=== PATIENT | male | born 1955 | race Caucasian/White ===

== ENCOUNTER 2017-05-01 07:04 | Day surgery (SDC) | payer OTHER, SELFPAY ==
[~2017-05-01] VITALS: Ht 170.2 cm; Wt 90.4 kg
[~2017-05-01 07:04] MED LIST: ASPI325 PO; CLON.1; CRUTCH3 USE; HYDACE10B PO; IBUP200; OMEP20ER; RAMI5; VERA240ERB; [UNRECOGNIZED DRUG - REMARK]; [UNRECOGNIZED DRUG - REMARK]
[2017-05-01] MEDS ORDERED: Aspirin EC81 MG (07:45)
[2017-05-01] MEDS ORDERED: GABA100 (07:46)
[2017-05-01] MEDS ORDERED: ZESTORETIC 20-121 EA (07:48)
[2017-05-01] MEDS ORDERED: AMLO10 (07:49)
[2017-05-01] MEDS ORDERED: DOXE75C (07:50)
[2017-05-01] MEDS ORDERED: TAMS.4ER (07:51)
== END 2017-05-01 10:22 | disposition home or self-care (01) ==
LOC: ORSCSDS 07:04
PROVIDERS: Urology
PROC: 0V507ZZ Destruction of Prostate, Via Natural or Artificial Opening (ICD-10-PCS; principal; 2017-05-01 08:30)
DX: N40.1 Benign prostatic hyperplasia with lower urinary tract symptoms (principal); I10 Essential (primary) hypertension; K21.9 Gastro-esophageal reflux disease without esophagitis; Z79.82 Long term (current) use of aspirin; Z79.899 Other long term (current) drug therapy
CPT/HCPCS: J0744; J1100; J2250; J2270; J2405; J3010; J7120

== ENCOUNTER → 2017-05-14 | Outpatient (CLI) | payer OTHER, SELFPAY ==
[~2017-05-14] MED LIST changes: +AMLO10; +Aspirin EC81 MG; +Crutch1 EACH MISC; +DOXE75C; +GABA100; +TAMS.4ER; +ZESTORETIC 20-121 EA
== END | disposition home or self-care (01) ==
LOC: LAB 16:09
DX: N39.0 Urinary tract infection, site not specified (principal)
CPT/HCPCS: 87086

== ENCOUNTER 2017-12-02 17:08 | Emergency (ER) | payer OTHER ==
[~2017-12-02] VITALS: Ht 170.2 cm; Wt 86.2 kg
[~2017-12-02 17:08] MED LIST changes: -Crutch1 EACH MISC
[2017-12-02] MEDS ORDERED: Crutch1 EACH MISC (18:07)
== END 2017-12-02 18:35 | disposition home or self-care (01) ==
LOC: ER 17:08
DX: S82.65XA Nondisplaced fracture of lateral malleolus of left fibula, initial encounter for closed fracture (principal); S92.252A Displaced fracture of navicular [scaphoid] of left foot, initial encounter for closed fracture; I10 Essential (primary) hypertension; K21.9 Gastro-esophageal reflux disease without esophagitis; Z88.5 Allergy status to narcotic agent; Z88.8 Allergy status to other drugs, medicaments and biological substances; Z79.899 Other long term (current) drug therapy; Z79.82 Long term (current) use of aspirin; Z87.891 Personal history of nicotine dependence; W13.8XXA Fall from, out of or through other building or structure, initial encounter
CPT/HCPCS: 29515; 73610; 99283-25

== ENCOUNTER → 2019-02-24 | Outpatient (CLI) | payer OTHER ==
[~2019-02-24] MED LIST changes: +Crutch1 EACH MISC
[2019-02-26 13:51] LABS: Stool Occult Bld Immuno 1 Negative (NEGATIVE)
== END | disposition home or self-care (01) ==
LOC: LAB 13:00 → LAB SHORT 13:00
PROVIDERS: Family Medicine
DX: Z12.11 Encounter for screening for malignant neoplasm of colon (principal)
CPT/HCPCS: G0328

== ENCOUNTER → 2021-12-14 | Outpatient (CLI) | payer OTHER | END | disposition home or self-care (01) | LOC: LAB 17:27 → LAB SHORT 17:27 | DX: S80.861A Insect bite (nonvenomous), right lower leg, initial encounter (principal); L08.9 Local infection of the skin and subcutaneous tissue, unspecified; W57.XXXA Bitten or stung by nonvenomous insect and other nonvenomous arthropods, initial encounter | CPT/HCPCS: 87070; 87147; 87205 ==

== ENCOUNTER → 2022-05-20 | Outpatient (CLI) | payer OTHER ==
[2022-05-21 14:23] LABS: Stool Occult Bld Immuno 1 Negative (NEGATIVE)
== END | disposition home or self-care (01) ==
LOC: LAB SHORT 12:00 → LAB 12:00
PROVIDERS: Family Medicine
DX: Z12.11 Encounter for screening for malignant neoplasm of colon (principal)
CPT/HCPCS: G0328

== ENCOUNTER 2024-01-05 14:09 | Emergency (ER) | payer OTHER ==
[~2024-01-05] VITALS: Ht 170.2 cm; Wt 95.2 kg
[~2024-01-05 14:09] MED LIST changes: +ALLO100 PO; +AMLO5 PO; +Acetaminophen650 M1 PO; +CELE200 PO; +CYCL10 PO; +CYMBALTA60 M1 PO; -GABA100; +GABA100 PO; +GLIP2.5ER PO; +HYDCHL25 PO; +HYDRA25 PO; +JARDIANCE10 MG PO; +LISI20 PO; +PREG150 PO; +TAMS.4ER PO; +TRELEGY ELLIPT1 EAC1 INH
[2024-01-05 16:37] LABS: BASOPHILS ABSOLUTE AUTO 0.05 K/mm3 (0.00-0.23); BASOPHILS PERCENT AUTO 0 % (0-2); EOSINOPHILS ABSOLUTE AUTO 0.19 K/mm3 (0.00-0.68); EOSINOPHILS PERCENT AUTO 1 % (0-6); Hematocrit 48.7 % (37.0-53.0); Hemoglobin 16.4 g/dL (13.5-17.5); IMMATURE GRAN ABSOLUTE AUTO 0.09 K/mm3 (0.00-0.10); IMMATURE GRAN PERCENT AUTO 1 % (0-1); LYMPHOCYTES ABSOLUTE AUTO 1.53 K/mm3 (0.84-5.20); LYMPHOCYTES PERCENT AUTO 11 % (21-46); MONOCYTES PERCENT AUTO 10 % (4-13); Mean Corpuscular HGB Conc 33.7 g/dL (31.5-36.5); Mean Corpuscular Volume 80 fL (80-100); Mean Platelet Volume 9.7 fL (9.1-12.4); NEUTROPHILS ABSOLUTE AUTO 10.82 K/mm3 (1.96-9.15); NEUTROPHILS PERCENT AUTO 77 % (41-73); Platelet Count 324 K/mm3 (150-400); RDW Standard Deviation 40.7 fL (35.1-46.3); Red Blood Cell Count 6.08 M/mm3 (4.30-5.90); White Blood Cell Count 14.08 K/mm3 (4.00-11.30)
[2024-01-05 16:54] LABS: Albumin, Blood 3.8 g/dL (3.4-5.0); Albumin/Globulin Ratio 0.8 (0.8-1.8); Bilirubin, Total 0.9 mg/dL (0.1-1.0); Bun/Creatinine Ratio 18.9 (12.0-20.0); Calcium, Blood 10.1 mg/dL (8.5-10.1); Creatinine, Blood 3.91 mg/dL (0.60-1.20); Globulin, Blood 4.9 g/dL (2.2-4.0); Potassium, Blood 3.2 mmol/L (3.5-5.5); Total Protein, Blood 8.7 g/dL (6.4-8.2)
[2024-01-05 17:36] LABS: Source, Urine Clean Catch
[2024-01-05 17:45] LABS: Appearance, Urine Clear (Clear); Bilirubin, Urine Neg (Neg); Blood, Urine 1+ (Neg); Color, Urine Yellow (P-Yellow); Glucose Qualitative, Urine 3+ (Neg); Ketones, Urine Neg (Neg); Leukocyte Esterase, Urine Neg (Neg); Nitrite, Urine Neg (Neg); Protein, Urine 3+ (Neg); Specific Gravity, Urine 1.015 (1.003-1.022); Urobilinogen, Urine NORM (Normal)
[2024-01-05 18:09] LABS: Bacteria Few /hpf; Squamous Epithelial Cells Few /hpf (Few)
[2024-01-05] MEDS ORDERED: Dexamethasone Sod Phos 10 MG/ML 1ML VIAL PO ONE (21:00)
[2024-01-05 21:04] LABS: Source, Urine Clean Catch
[2024-01-05 21:08] LABS: Appearance, Urine Clear (Clear); Bilirubin, Urine Neg (Neg); Blood, Urine Neg (Neg); Color, Urine Yellow (P-Yellow); Glucose Qualitative, Urine 3+ (Neg); Ketones, Urine Neg (Neg); Leukocyte Esterase, Urine Neg (Neg); Nitrite, Urine Neg (Neg); Protein, Urine 3+ (Neg); Specific Gravity, Urine 1.015 (1.003-1.022); Urobilinogen, Urine NORM (Normal)
[2024-01-05 21:35] LABS: Bacteria Not Seen /hpf; Red Blood Cells, Urine Not Seen /hpf (0-2); Squamous Epithelial Cells Rare /hpf (Few); White Blood Cells, Urine 0-2 /hpf (0-5)
[2024-01-05 21:41] VITALS: BP 133/89
== END 2024-01-05 21:53 | disposition home or self-care (01) ==
LOC: ER 14:09
PROVIDERS: Emergency Medicine
DX: R53.1 Weakness (principal); M79.672 Pain in left foot; M79.671 Pain in right foot; M25.562 Pain in left knee; M25.521 Pain in right elbow; I12.9 Hypertensive chronic kidney disease with stage 1 through stage 4 chronic kidney disease, or unspecified chronic kidney disease; E11.22 Type 2 diabetes mellitus with diabetic chronic kidney disease; N18.9 Chronic kidney disease, unspecified; M10.9 Gout, unspecified; Z87.891 Personal history of nicotine dependence; Z79.84 Long term (current) use of oral hypoglycemic drugs; Z79.82 Long term (current) use of aspirin; Z79.899 Other long term (current) drug therapy
CPT/HCPCS: 70450; 71046; 80053; 81001; 85025; 93005; 93010; 99285-25; J1100

== ENCOUNTER 2024-01-08 21:33 | Emergency (ER) | payer OTHER ==
[~2024-01-08] VITALS: Ht 172.7 cm; Wt 72.6 kg
[2024-01-08 22:25] LABS: BASOPHILS ABSOLUTE AUTO 0.02 K/mm3 (0.00-0.23); BASOPHILS PERCENT AUTO 0 % (0-2); EOSINOPHILS ABSOLUTE AUTO 0.01 K/mm3 (0.00-0.68); EOSINOPHILS PERCENT AUTO 0 % (0-6); Hematocrit 38.3 % (37.0-53.0); Hemoglobin 13.2 g/dL (13.5-17.5); IMMATURE GRAN PERCENT AUTO 2 % (0-1); LYMPHOCYTES ABSOLUTE AUTO 1.09 K/mm3 (0.84-5.20); LYMPHOCYTES PERCENT AUTO 9 % (21-46); MONOCYTES ABSOLUTE AUTO 1.04 K/mm3 (0.16-1.47); MONOCYTES PERCENT AUTO 8 % (4-13); Mean Corpuscular HGB Conc 34.5 g/dL (31.5-36.5); Mean Corpuscular Volume 79 fL (80-100); Mean Platelet Volume 9.9 fL (9.1-12.4); NEUTROPHILS PERCENT AUTO 81 % (41-73); Platelet Count 335 K/mm3 (150-400); RDW Coefficient Variation 13.3 % (11.7-14.2); RDW Standard Deviation 38.1 fL (35.1-46.3); Red Blood Cell Count 4.88 M/mm3 (4.30-5.90); White Blood Cell Count 12.66 K/mm3 (4.00-11.30)
[2024-01-08 23:55] LABS: Albumin, Blood 3.5 g/dL (3.4-5.0); Bilirubin, Total 0.4 mg/dL (0.1-1.0); Bun/Creatinine Ratio 26.4 (12.0-20.0); Calcium, Blood 8.2 mg/dL (8.5-10.1); Creatinine, Blood 3.9 mg/dL (0.60-1.20); Globulin, Blood 3.6 g/dL (2.2-4.0); Potassium, Blood 2.4 mmol/L (3.5-5.5); Total Protein, Blood 7.1 g/dL (6.4-8.2)
[2024-01-09 01:02] LABS: Source, Urine Clean Catch
[2024-01-09] MEDS ORDERED: PROAIR DIGIHAL90 MCG INH (01:05)
[2024-01-09] MEDS ORDERED: METPRE4DP PO (01:05)
[2024-01-09 01:52] LABS: Appearance, Urine Clear (Clear); Bilirubin, Urine Neg (Neg); Blood, Urine 1+ (Neg); Glucose Qualitative, Urine 3+ (Neg); Ketones, Urine Neg (Neg); Leukocyte Esterase, Urine Neg (Neg); Nitrite, Urine Neg (Neg); Protein, Urine 3+ (Neg); Urobilinogen, Urine NORM (Normal)
[2024-01-09] MEDS ORDERED: Potassium Chloride 20 MEQ/15 ML UDC PO ONE (02:00)
[2024-01-09 02:02] LABS: Color, Urine Pale Yellow (P-Yellow)
[2024-01-09 02:03] LABS: Bacteria Few /hpf; Red Blood Cells, Urine 0-2 /hpf (0-2); Squamous Epithelial Cells Few /hpf (Few); White Blood Cells, Urine 0-2 /hpf (0-5)
[2024-01-09 03:53] LABS: Magnesium, Blood 2.5 mg/dL (1.6-2.4); Phosphorus, Blood 5.1 mg/dL (2.5-4.9)
[2024-01-09 04:00] VITALS: BP 135/77
== END 2024-01-09 04:20 | disposition home or self-care (01) ==
LOC: ER 21:33
PROVIDERS: Emergency Medicine; Physician Assistant
DX: E87.6 Hypokalemia (principal); R80.9 Proteinuria, unspecified; D72.829 Elevated white blood cell count, unspecified; Z88.5 Allergy status to narcotic agent; Z88.8 Allergy status to other drugs, medicaments and biological substances; Z79.899 Other long term (current) drug therapy; Z79.82 Long term (current) use of aspirin; I10 Essential (primary) hypertension; K21.9 Gastro-esophageal reflux disease without esophagitis; M10.9 Gout, unspecified; G47.30 Sleep apnea, unspecified; Z87.891 Personal history of nicotine dependence
CPT/HCPCS: 36415; 80053; 81001; 83735; 84100; 85025; 93005; 93010; 99283-25; A9270

== ENCOUNTER → 2024-02-25 | Outpatient (CLI) | payer OTHER ==
[~2024-02-25] MED LIST changes: +METPRE4DP PO; +PROAIR DIGIHAL90 MCG INH
[2024-02-25 17:24] LABS: BASOPHILS ABSOLUTE AUTO 0.09 K/mm3 (0.00-0.23); BASOPHILS PERCENT AUTO 1 % (0-2); EOSINOPHILS PERCENT AUTO 9 % (0-6); Hematocrit 39.5 % (37.0-53.0); Hemoglobin 13.1 g/dL (13.5-17.5); IMMATURE GRAN ABSOLUTE AUTO 0.06 K/mm3 (0.00-0.10); IMMATURE GRAN PERCENT AUTO 1 % (0-1); LYMPHOCYTES ABSOLUTE AUTO 1.58 K/mm3 (0.84-5.20); LYMPHOCYTES PERCENT AUTO 24 % (21-46); MONOCYTES ABSOLUTE AUTO 0.58 K/mm3 (0.16-1.47); MONOCYTES PERCENT AUTO 9 % (4-13); Mean Corpuscular HGB 26.5 pg (26.0-34.0); Mean Corpuscular HGB Conc 33.2 g/dL (31.5-36.5); Mean Corpuscular Volume 80 fL (80-100); Mean Platelet Volume 10.4 fL (9.1-12.4); NEUTROPHILS ABSOLUTE AUTO 3.69 K/mm3 (1.96-9.15); NEUTROPHILS PERCENT AUTO 56 % (41-73); Platelet Count 217 K/mm3 (150-400); RDW Coefficient Variation 15.3 % (11.7-14.2); RDW Standard Deviation 44.1 fL (35.1-46.3); Red Blood Cell Count 4.94 M/mm3 (4.30-5.90)
== END ==
LOC: LAB 15:54 → LAB SHORT 15:54
PROVIDERS: Internal Medicine Hematology & Oncology
DX: D47.2 Monoclonal gammopathy (principal)
CPT/HCPCS: 85025

== ENCOUNTER → 2024-04-29 | Outpatient (CLI) | payer OTHER ==
[2024-04-29 18:26] LABS: BASOPHILS ABSOLUTE AUTO 0.06 K/mm3 (0.00-0.23); BASOPHILS PERCENT AUTO 1 % (0-2); EOSINOPHILS ABSOLUTE AUTO 0.48 K/mm3 (0.00-0.68); EOSINOPHILS PERCENT AUTO 7 % (0-6); Hematocrit 38.4 % (37.0-53.0); IMMATURE GRAN PERCENT AUTO 2 % (0-1); LYMPHOCYTES ABSOLUTE AUTO 1.08 K/mm3 (0.84-5.20); LYMPHOCYTES PERCENT AUTO 16 % (21-46); MONOCYTES ABSOLUTE AUTO 0.53 K/mm3 (0.16-1.47); MONOCYTES PERCENT AUTO 8 % (4-13); Mean Corpuscular HGB 27.2 pg (26.0-34.0); Mean Corpuscular HGB Conc 33.9 g/dL (31.5-36.5); Mean Corpuscular Volume 80 fL (80-100); Mean Platelet Volume 9.8 fL (9.1-12.4); NEUTROPHILS PERCENT AUTO 67 % (41-73); Platelet Count 225 K/mm3 (150-400); RDW Coefficient Variation 16.9 % (11.7-14.2); Red Blood Cell Count 4.78 M/mm3 (4.30-5.90); White Blood Cell Count 6.85 K/mm3 (4.00-11.30)
== END ==
LOC: LAB 17:15 → LAB SHORT 17:15
PROVIDERS: Internal Medicine Hematology & Oncology
DX: E61.1 Iron deficiency (principal)
CPT/HCPCS: 85025

== ENCOUNTER → 2024-07-01 | Outpatient (CLI) | payer OTHER ==
[2024-07-01 19:09] LABS: BASOPHILS ABSOLUTE AUTO 0.08 K/mm3 (0.00-0.23); BASOPHILS PERCENT AUTO 1 % (0-2); EOSINOPHILS PERCENT AUTO 6 % (0-6); Hematocrit 42.2 % (37.0-53.0); IMMATURE GRAN PERCENT AUTO 1 % (0-1); LYMPHOCYTES ABSOLUTE AUTO 1.28 K/mm3 (0.84-5.20); LYMPHOCYTES PERCENT AUTO 14 % (21-46); MONOCYTES PERCENT AUTO 10 % (4-13); Mean Corpuscular HGB 27.1 pg (26.0-34.0); Mean Corpuscular HGB Conc 33.2 g/dL (31.5-36.5); Mean Corpuscular Volume 82 fL (80-100); Mean Platelet Volume 10.1 fL (9.1-12.4); NEUTROPHILS ABSOLUTE AUTO 6.05 K/mm3 (1.96-9.15); NEUTROPHILS PERCENT AUTO 68 % (41-73); Platelet Count 261 K/mm3 (150-400); RDW Coefficient Variation 15.1 % (11.7-14.2); Red Blood Cell Count 5.16 M/mm3 (4.30-5.90); White Blood Cell Count 8.91 K/mm3 (4.00-11.30)
== END ==
LOC: LAB 17:54 → LAB SHORT 17:54
PROVIDERS: Internal Medicine Hematology & Oncology
DX: E61.1 Iron deficiency (principal)
CPT/HCPCS: 85025

== ENCOUNTER 2024-10-14 15:42 | Inpatient (IN) | payer OTHER ==
[~2024-10-14] VITALS: Ht 170.2 cm; Wt 91.1 kg
[~2024-10-14 15:42] MED LIST changes: +ACET325 PO; -Acetaminophen650 M1 PO; -Aspirin EC81 MG; +Aspirin EC81 MG PO; -DOXE75C; +DOXE75C PO; -GLIP2.5ER PO; +GLIPIZIDE2.5 MG PO; -OMEP20ER; +OMEP20ER PO
[2024-10-14 17:12] LABS: Influenza A, PCR NEGATIVE (NEGATIVE); Influenza B, PCR NEGATIVE (NEGATIVE); Resp Syncytial Virus, PCR NEGATIVE (NEGATIVE); SARS-Cov-2 (COVID-19) PCR, MMC NEGATIVE (NEGATIVE)
[2024-10-14] MEDS ORDERED: CefTRIAXone Sodium 1,000 MG in NS 50 ML IV ONE (21:55)
[2024-10-14 22:02] LABS: BASOPHILS ABSOLUTE AUTO 0.06 K/mm3 (0.00-0.23); BASOPHILS PERCENT AUTO 1 % (0-2); EOSINOPHILS ABSOLUTE AUTO 0.38 K/mm3 (0.00-0.68); EOSINOPHILS PERCENT AUTO 3 % (0-6); Hematocrit 40.9 % (37.0-53.0); Hemoglobin 13.5 g/dL (13.5-17.5); IMMATURE GRAN ABSOLUTE AUTO 0.10 K/mm3 (0.00-0.10); IMMATURE GRAN PERCENT AUTO 1 % (0-1); LYMPHOCYTES ABSOLUTE AUTO 1.08 K/mm3 (0.84-5.20); LYMPHOCYTES PERCENT AUTO 10 % (21-46); MONOCYTES ABSOLUTE AUTO 1.36 K/mm3 (0.16-1.47); MONOCYTES PERCENT AUTO 12 % (4-13); Mean Corpuscular HGB Conc 33.0 g/dL (31.5-36.5); Mean Corpuscular Volume 83 fL (80-100); NEUTROPHILS ABSOLUTE AUTO 8.33 K/mm3 (1.96-9.15); NEUTROPHILS PERCENT AUTO 74 % (41-73); NRBC ABSOLUTE 0.00 K/mm3 (0.00-0.02); NRBC Auto 0.0 /100 WBC (0.0-0.2); Platelet Count 225 K/mm3 (150-400); RDW Coefficient Variation 14.8 % (11.7-14.2); RDW Standard Deviation 44.7 fL (35.1-46.3)
[2024-10-14 22:18] LABS: Alanine Aminotransfer (ALT/SGP 29.0 U/L (12-78); Albumin, Blood 3.4 g/dL (3.4-5.0); Albumin/Globulin Ratio 0.8 (0.8-1.8); Anion Gap 11.0 mmol/L (3-11); Aspartate Aminotrans (AST/SGOT 18.0 U/L (12-37); Bilirubin, Total 0.5 mg/dL (0.1-1.0); Blood Urea Nitrogen 69.0 mg/dL (8-24); CO2, Blood 31.0 mmol/L (21-32); Calcium, Blood 9.4 mg/dL (8.5-10.1); Chloride, Blood 96.0 mmol/L (98-108); Creatinine, Blood 6.82 mg/dL (0.60-1.20); Globulin, Blood 4.1 g/dL (2.2-4.0); Glucose, Blood 101.0 mg/dL (70-99); Potassium, Blood 3.6 mmol/L (3.5-5.5); Sodium, Blood 134.0 mmol/L (136-145); Total Protein, Blood 7.5 g/dL (6.4-8.2)
[2024-10-14 22:41] LABS: pH Blood Venous 7.38 (7.34-7.37)
[2024-10-15] MEDS ORDERED: KETO15TC TOP (00:51)
[2024-10-15] MEDS ORDERED: VITAMIN B121000 MCG PO (00:52)
[2024-10-15] MEDS ORDERED: VITAMIN D325 MC3 PO (00:52)
[2024-10-15] MEDS ORDERED: HYDCHL25 PO (00:52)
[2024-10-15 01:04] LABS: Source, Urine Clean Catch
[2024-10-15 01:58] LABS: Bilirubin, Urine Neg (Neg); Glucose Qualitative, Urine 3+ (Neg); Ketones, Urine Neg (Neg); Leukocyte Esterase, Urine Neg (Neg); Protein, Urine 3+ (Neg); Specific Gravity, Urine 1.015 (1.003-1.022); Urobilinogen, Urine NORM (Normal)
[2024-10-15 02:10] LABS: Color, Urine Pale Yellow (P-Yellow)
[2024-10-15 02:11] LABS: Red Blood Cells, Urine 0-2 /hpf (0-2); White Blood Cells, Urine 0-2 /hpf (0-5)
[2024-10-15 02:20] VITALS: BP 136/73
[2024-10-15] MEDS ORDERED: Guaifenesin/Dextromethorphan Syrup 5 ML UDC PO PRN (03:10)
[2024-10-15] MEDS ORDERED: Dextran/Hypromellose/Glycerin 15 DROP/ML BTL BOTHEYES PRN (03:10)
[2024-10-15] MEDS ORDERED: Ipratropium Bromide INH 0.02% 0.5 mg/2.5ML Vial INH SCH (03:30)
[2024-10-15] MEDS ORDERED: Albuterol 2.5 MG/3 ML VIAL INH PRN (03:30)
[2024-10-15] MEDS ORDERED: Formoterol/Mometasone MDI 5/100 mcg 13 GM INH SCH (03:30)
[2024-10-15 03:47] VITALS: BP 116/69
--- NOTE | 2024-10-15 04:25 | NUR ---
ADMISSION/SHIFT SUMMARY PATIENT ARRIVED TO THE FLOOR VIA GURNY, STAND PIVOT TRANSFER TO THE BED WITH SBA, GENERALIZED WEAKNESS. A/OX4. VITAL SIGNS OBTAINED. INITIAL ADMISSION ASSESSMENT COMPLETE BY TOM RIVAS. PATIENT RESTED WELL THROUGH THE NIGHT. VOIDING WELL. VITAL SIGNS REMAINED STABLE, NO ACUTE CHANGES. SNACK PROVIDED. PT USING CALL LIGHT APPROPRIATELY. CALL LIGHT IN REACH, BED IN LOWEST POSITION. WILL REPORT TO ONCOMING RN.
[2024-10-15 05:04] LABS: BASOPHILS ABSOLUTE AUTO 0.07 K/mm3 (0.00-0.23); BASOPHILS PERCENT AUTO 1 % (0-2); EOSINOPHILS ABSOLUTE AUTO 0.44 K/mm3 (0.00-0.68); EOSINOPHILS PERCENT AUTO 4 % (0-6); Hematocrit 39.4 % (37.0-53.0); Hemoglobin 13.1 g/dL (13.5-17.5); IMMATURE GRAN ABSOLUTE AUTO 0.13 K/mm3 (0.00-0.10); IMMATURE GRAN PERCENT AUTO 1 % (0-1); LYMPHOCYTES ABSOLUTE AUTO 1.40 K/mm3 (0.84-5.20); LYMPHOCYTES PERCENT AUTO 13 % (21-46); MONOCYTES ABSOLUTE AUTO 1.17 K/mm3 (0.16-1.47); MONOCYTES PERCENT AUTO 11 % (4-13); Mean Corpuscular HGB Conc 33.2 g/dL (31.5-36.5); Mean Corpuscular Volume 83 fL (80-100); NEUTROPHILS ABSOLUTE AUTO 7.86 K/mm3 (1.96-9.15); NEUTROPHILS PERCENT AUTO 71 % (41-73); NRBC ABSOLUTE 0.00 K/mm3 (0.00-0.02); NRBC Auto 0.0 /100 WBC (0.0-0.2); Platelet Count 191 K/mm3 (150-400); RDW Coefficient Variation 14.6 % (11.7-14.2); RDW Standard Deviation 44.2 fL (35.1-46.3)
[2024-10-15 06:16] LABS: Alanine Aminotransfer (ALT/SGP 33.0 U/L (12-78); Albumin, Blood 3.1 g/dL (3.4-5.0); Albumin/Globulin Ratio 0.7 (0.8-1.8); Anion Gap 11.0 mmol/L (3-11); Aspartate Aminotrans (AST/SGOT 19.0 U/L (12-37); Bilirubin, Total 0.4 mg/dL (0.1-1.0); Blood Urea Nitrogen 73.0 mg/dL (8-24); CO2, Blood 28.0 mmol/L (21-32); Calcium, Blood 8.8 mg/dL (8.5-10.1); Chloride, Blood 98.0 mmol/L (98-108); Creatinine, Blood 6.56 mg/dL (0.60-1.20); Globulin, Blood 4.2 g/dL (2.2-4.0); Glucose, Blood 148.0 mg/dL (70-99); Magnesium, Blood 2.2 mg/dL (1.6-2.4); Phosphorus, Blood 5.7 mg/dL (2.5-4.9); Potassium, Blood 2.9 mmol/L (3.5-5.5); Sodium, Blood 134.0 mmol/L (136-145); Total Protein, Blood 7.3 g/dL (6.4-8.2)
[2024-10-15 07:33] VITALS: BP 138/78
[2024-10-15] MEDS ORDERED: Lactobacil 2-S.Thermo-Bifido 1 1 Cap PO SCH (09:00)
[2024-10-15] MEDS ORDERED: Heparin Sodium,Porcine 5,000 UNIT/0.5 ML SDV SC SCH (09:00)
[2024-10-15] MEDS ORDERED: NS 250 ML IV PRN (15:00)
[2024-10-15] MEDS ORDERED: Ketoconazole120 ML TOP (15:21)
[2024-10-15] MEDS ORDERED: BUMETANIDE2 M6 PO (15:25)
[2024-10-15 15:26] VITALS: BP 153/87
[2024-10-15] MEDS ORDERED: CALCITRIOL0.25 MC4 PO (15:30)
--- NOTE | 2024-10-15 15:32 | NUR ---
Pt. is awake in bed and welcomes my visit. Family are at bedside. Facilitate a life review and consider matters of pavan and belief. Pt. is pleasant. Pt. is unsettled about his unkown plan of care. Listen with empathy and interest, and seek to normalize the Pt. experience. Prayed with the Pt. Pt. and family verbalize gratitude for the spiritual care visit.
[2024-10-15] MEDS ORDERED: FOLI1 PO (15:35)
[2024-10-15] MEDS ORDERED: Potassium Chlo20 ME1 PO (15:36)
--- NOTE | 2024-10-15 18:12 | NUR ---
SHIFT SUMMARY: PATIENT PLEASANT AND COOPERATIVE c CARE THROUGHOUT SHIFT. POTASSIUM WAS NOTED TO BE LOW. DR. ALMAGUER NOTIFIED AND PATIENT STARTED ON PO POTASSIUM AND IV. AT 1805, PATIENT HAD 12 BEAT RUN OF BIGJUSTYN. TRIPP NOTIFIED OF THIS FINDING. PLAN FOR POSSIBLE DAILYSIS CATH TOMORROW. WHEEZE AND DIMINISHED THROUGHOUT ALL LUNG LÓPEZ. PLAN OF CARE ONGOING, WILL GIVE REPORT TO ONCOMING RN.
[2024-10-15 20:43] VITALS: BP 161/90
[2024-10-15] MEDS ORDERED: CefTRIAXone Sodium 1,000 MG in NS 100 ML IV SCH (21:00)
[2024-10-16] VITALS (8 sets, daily range): BP systolic 122–162; BP diastolic 71–111
[2024-10-16 05:04] LABS: BASOPHILS ABSOLUTE AUTO 0.07 K/mm3 (0.00-0.23); BASOPHILS PERCENT AUTO 1 % (0-2); EOSINOPHILS ABSOLUTE AUTO 0.60 K/mm3 (0.00-0.68); EOSINOPHILS PERCENT AUTO 7 % (0-6); Hematocrit 43.7 % (37.0-53.0); Hemoglobin 14.1 g/dL (13.5-17.5); IMMATURE GRAN ABSOLUTE AUTO 0.11 K/mm3 (0.00-0.10); IMMATURE GRAN PERCENT AUTO 1 % (0-1); LYMPHOCYTES ABSOLUTE AUTO 1.43 K/mm3 (0.84-5.20); LYMPHOCYTES PERCENT AUTO 16 % (21-46); MONOCYTES ABSOLUTE AUTO 0.99 K/mm3 (0.16-1.47); MONOCYTES PERCENT AUTO 11 % (4-13); Mean Corpuscular HGB Conc 32.3 g/dL (31.5-36.5); Mean Corpuscular Volume 83 fL (80-100); NEUTROPHILS ABSOLUTE AUTO 5.84 K/mm3 (1.96-9.15); NEUTROPHILS PERCENT AUTO 65 % (41-73); NRBC ABSOLUTE 0.00 K/mm3 (0.00-0.02); NRBC Auto 0.0 /100 WBC (0.0-0.2); Platelet Count 194 K/mm3 (150-400); RDW Coefficient Variation 14.7 % (11.7-14.2); RDW Standard Deviation 45.1 fL (35.1-46.3)
[2024-10-16 05:29] LABS: Albumin, Blood 2.8 g/dL (3.4-5.0); Anion Gap 10 mmol/L (3-11); Blood Urea Nitrogen 71 mg/dL (8-24); CO2, Blood 28 mmol/L (21-32); Calcium, Blood 8.8 mg/dL (8.5-10.1); Chloride, Blood 102 mmol/L (98-108); Creatinine, Blood 6.31 mg/dL (0.60-1.20); Glucose, Blood 100 mg/dL (70-99); Phosphorus, Blood 6.9 mg/dL (2.5-4.9); Potassium, Blood 3.6 mmol/L (3.5-5.5); Sodium, Blood 136 mmol/L (136-145)
--- NOTE | 2024-10-16 06:25 | NUR ---
SHIFT SUMMARY CALM & ORIENTED. DOES NOT MOVE TOO MUCH OR GETS OUT OF BED. VITALS GOOD EXCEPT FOR 2 EPISODES OF DBP >100 AT 8P & 12MN THEN BP SUDDENLY RESOLVED TO 140/70 JUST RIGHT BEFORE I AM ABOUT TO GIVE THE 1-TIME DOSE OF APRESOLINE THAT WAS ORDERED. CONTINUED IV ABX, REMINDED OF REPOSITIONING , MAINTAINED COMFORTABLE SLEEP AND RESTED VERY WELL. KEPT NPO FOR PORT PLACEMENT PROCEDURE TODAY.
[2024-10-16] MEDS ORDERED: DULoxetine HCL 60 MG Capsule DR PO SCH (09:00)
[2024-10-16] MEDS ORDERED: Cholecalciferol 1000 Unit Tablet (=25MCG) PO SCH (09:00)
[2024-10-16 14:35] LABS: Anion Gap 13.0 mmol/L (3-11); Blood Urea Nitrogen 73.0 mg/dL (8-24); CO2, Blood 28.0 mmol/L (21-32); Calcium, Blood 9.6 mg/dL (8.5-10.1); Chloride, Blood 99.0 mmol/L (98-108); Creatinine, Blood 6.34 mg/dL (0.60-1.20); Glucose, Blood 118.0 mg/dL (70-99); Potassium, Blood 3.9 mmol/L (3.5-5.5); Sodium, Blood 136.0 mmol/L (136-145)
[2024-10-16 16:50] LABS: Influenza A/2009-H1 Not Detected (NOT DETECT); SARS-Cov-2 (COVID-19), BioFire Not Detected (NOT DETECT)
--- NOTE | 2024-10-16 18:29 | NUR ---
SUMMARY PT WAS NPO TODAY PENDING PROCEDURE FOR DIALYSIS ACCESS. INTERVENTIONAL RADIOLOGY NOT AVAIL. DR. ALMAGUER NOTIFIED AND ASKED ME TO REACH OUT TO CYTOGENETICIST NEPHRO TO REVIEW AND POSSIBLY HAVE GEN SURG CONSULT FOR DIALYSIS ACCESS PLACEMENT. COULD NOT REACH DR. DUMONT [facility], MESSAGE LEFT. DR ALMAGUER NOTIFIED. LABS ORDERED. WILL PREPARE PATIENT TO BE NPO AFTER MIDNIGHT AGAIN PENDING POSSIBLE PROCEDURE. AM LABS ORDERED. PT UP TO BATHROOM 1 ASSIST, WITH GAIT BELT. BOWEL MOVEMENT TODAY 10/16. ABLE TO MAKE NEEDS KNOWN. CALL LIGHT IN REACH. BASELINE MUMBLED SPEECH
[2024-10-16 23:39] LABS: Acinetobacter baumannii DNA Not Detected copy/mL (NOT DETECT); Chlamydia pneumonia Not Detected (NOT DETECT); Enterobacter cloacae DNA Not Detected copy/mL (NOT DETECT); Escherichia coli DNA Not Detected copy/mL (NOT DETECT); Haemophilus influenzae DNA Not Detected copy/mL (NOT DETECT); Klebsiella aerogenes DNA Not Detected copy/mL (NOT DETECT); Klebsiella oxytoca DNA Not Detected copy/mL (NOT DETECT); Klebsiella pneumoniae DNA Not Detected copy/mL (NOT DETECT); Moraxella catarrhalis DNA Detected Bin 10^4 copy/mL (NOT DETECT); Proteus sp DNA Not Detected copy/mL (NOT DETECT); Pseudomonas aeruginosa DNA Not Detected copy/mL (NOT DETECT); Serratia marcescens DNA Not Detected copy/mL (NOT DETECT); Staphylococcus aureus DNA Not Detected copy/mL (NOT DETECT); Streptococcus agalactiae DNA Not Detected copy/mL (NOT DETECT); Streptococcus pneumoniae DNA Not Detected copy/mL (NOT DETECT); Streptococcus pyogenes DNA Not Detected copy/mL (NOT DETECT)
[2024-10-16 23:40] LABS: Human Coronavirus RNA Not Detected (NOT DETECT); Human Metapneumovirus RNA Not Detected (NOT DETECT); Influenza virus A RNA Not Detected (NOT DETECT); Influenza virus B RNA Not Detected (NOT DETECT); Respiratory syncytial Vir RNA Not Detected (NOT DETECT); Rhinovirus+Enterovirus RNA Not Detected (NOT DETECT)
[2024-10-17 01:03] VITALS: BP 143/73
[2024-10-17 05:01] LABS: BASOPHILS ABSOLUTE AUTO 0.05 K/mm3 (0.00-0.23); BASOPHILS PERCENT AUTO 1 % (0-2); EOSINOPHILS ABSOLUTE AUTO 0.64 K/mm3 (0.00-0.68); EOSINOPHILS PERCENT AUTO 6 % (0-6); Hematocrit 38.6 % (37.0-53.0); Hemoglobin 13.0 g/dL (13.5-17.5); IMMATURE GRAN ABSOLUTE AUTO 0.09 K/mm3 (0.00-0.10); IMMATURE GRAN PERCENT AUTO 1 % (0-1); LYMPHOCYTES ABSOLUTE AUTO 1.10 K/mm3 (0.84-5.20); LYMPHOCYTES PERCENT AUTO 11 % (21-46); MONOCYTES ABSOLUTE AUTO 1.05 K/mm3 (0.16-1.47); MONOCYTES PERCENT AUTO 10 % (4-13); Mean Corpuscular HGB Conc 33.7 g/dL (31.5-36.5); Mean Corpuscular Volume 82 fL (80-100); NEUTROPHILS ABSOLUTE AUTO 7.27 K/mm3 (1.96-9.15); NEUTROPHILS PERCENT AUTO 71 % (41-73); NRBC ABSOLUTE 0.00 K/mm3 (0.00-0.02); NRBC Auto 0.0 /100 WBC (0.0-0.2); Platelet Count 221 K/mm3 (150-400); RDW Coefficient Variation 14.6 % (11.7-14.2); RDW Standard Deviation 43.8 fL (35.1-46.3)
[2024-10-17 05:04] VITALS: BP 134/81
[2024-10-17 05:31] LABS: Albumin, Blood 2.8 g/dL (3.4-5.0); Anion Gap 12 mmol/L (3-11); Blood Urea Nitrogen 69 mg/dL (8-24); CO2, Blood 28 mmol/L (21-32); Calcium, Blood 8.9 mg/dL (8.5-10.1); Chloride, Blood 98 mmol/L (98-108); Creatinine, Blood 6.31 mg/dL (0.60-1.20); Glucose, Blood 108 mg/dL (70-99); Phosphorus, Blood 6.7 mg/dL (2.5-4.9); Potassium, Blood 3.5 mmol/L (3.5-5.5); Sodium, Blood 134 mmol/L (136-145)
--- NOTE | 2024-10-17 06:24 | NUR ---
SHIFT SUMMARY SAME LEVEL OF ORIENTATION, VSS AND MOBILITY FROM YESTERDAY. SENT SPUTUM SPECIMEN FOR EXAM TONIGHT. TOLERATES MULTIPLE ABX TX REGIMEN. ABLE TO SLEEP COMFORTABLY AT NIGHT. INSTRUCTED NPO POST-MN FOR POSSIBLE HD ACCESS TODAY. TEMPT SLIGHTLY INCREASING BUT HAS NOT REACH THE FEVER ROLAN YET. NO SIGN OF ANY DISTRESS .
[2024-10-17 07:45] VITALS: BP 135/82
--- NOTE | 2024-10-17 10:53 | NUR ---
CALLED DR. DUMONT PER DR. URIBE REQUEST TO REVIEW CHART. PT HAS BEEN PENDING DIALSIS ACCESS SINCE FRIDAY. DR. SANCHES CELL PROVIDED FOR DR. DUMONT ONCE REVIEWED.
[2024-10-17 11:17] VITALS: BP 134/77
[2024-10-17 15:31] VITALS: BP 128/79
[2024-10-17 19:58] VITALS: BP 138/66
[2024-10-18] VITALS (17 sets, daily range): BP systolic 126–143; BP diastolic 64–85
--- NOTE | 2024-10-18 03:46 | NUR ---
SUMMARY: PT A/OX3 AND IS PLEASANT AND COOPERATIVE W/CARE BUT IS MILDLY FORGETFUL TO PEOPLE/PLACE AT TIMES. HE'S UP W/SBA AND FWW AND HAS BED ALARM ON FOR POSSIBLE FALL RISK. PT'S BEEN NPO SINCE [place] FOR DIALYSIS CATH PLACEMENT BY IR TODAY THEN WILL HAVE PROBABLE DIALYSIS AFTER. 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 NO ACUTE CHANGES, VSS/AFEBRILE. WILL REPORT TO DAY RN.
[2024-10-18 06:40] LABS: Hematocrit 39.0 % (37.0-53.0); Hemoglobin 13.0 g/dL (13.5-17.5)
[2024-10-18 06:54] LABS: Albumin, Blood 2.8 g/dL (3.4-5.0); Anion Gap 10 mmol/L (3-11); Blood Urea Nitrogen 81 mg/dL (8-24); CO2, Blood 29 mmol/L (21-32); Calcium, Blood 9.4 mg/dL (8.5-10.1); Chloride, Blood 100 mmol/L (98-108); Creatinine, Blood 7.00 mg/dL (0.60-1.20); Glucose, Blood 108 mg/dL (70-99); Phosphorus, Blood 6.3 mg/dL (2.5-4.9); Potassium, Blood 3.4 mmol/L (3.5-5.5); Sodium, Blood 136 mmol/L (136-145)
[2024-10-18] MEDS ORDERED: Midazolam HCl 1MG / ML 2ML Vial ONE (09:33)
[2024-10-18] MEDS ORDERED: NS 500 ML IV ONE (09:33)
[2024-10-18] MEDS ORDERED: FentaNYL Citrate 50 MCG/ML 2 ML Injection ONE (09:33)
[2024-10-18] MEDS ORDERED: Heparin Sodium 10,000 Units/ML 1ML MDV ONE (09:48)
--- NOTE | 2024-10-18 10:52 | NUR ---
PT WENT DOWN TO GET PERMACATH AND IS NOW IN DIALYSIS. DR. [facility] MEET WHILE IN DIALYSIS. FAMILY AT BEDSIDE.
--- NOTE | 2024-10-18 17:24 | NUR ---
SUMMARY PT HAD PERMACATH PLACED TO RIGHT CHEST THIS MORNING AND HAD FIRST DIALYSIS TREATMENT AFTER. 1L WAS REMOVED. PER DIALYSIS NURSE WILL GET DIALYSIS AGAIN TOMORROW. DR. DUMONT TELE HEALTH VISIT IN DIALYSIS. PT REPORTED CRAMPING AFTER DIALYSIS. PRN TYLENOL GIVEN THIS EVENING FOR LOWER EXTREMTIY PAIN/TIGHTNESS. NO ACUTE EVENTS ON TELE. PT ABLE TO MAKE NEEDS KNOWN.
[2024-10-19] VITALS (17 sets, daily range): BP systolic 110–153; BP diastolic 69–91
[2024-10-19 04:38] LABS: BASOPHILS ABSOLUTE AUTO 0.14 K/mm3 (0.00-0.23); BASOPHILS PERCENT AUTO 1 % (0-2); EOSINOPHILS ABSOLUTE AUTO 0.61 K/mm3 (0.00-0.68); EOSINOPHILS PERCENT AUTO 5 % (0-6); Hematocrit 40.9 % (37.0-53.0); Hemoglobin 13.3 g/dL (13.5-17.5); IMMATURE GRAN ABSOLUTE AUTO 0.44 K/mm3 (0.00-0.10); IMMATURE GRAN PERCENT AUTO 4 % (0-1); LYMPHOCYTES ABSOLUTE AUTO 1.31 K/mm3 (0.84-5.20); LYMPHOCYTES PERCENT AUTO 12 % (21-46); MONOCYTES ABSOLUTE AUTO 1.25 K/mm3 (0.16-1.47); MONOCYTES PERCENT AUTO 11 % (4-13); Mean Corpuscular HGB Conc 32.5 g/dL (31.5-36.5); Mean Corpuscular Volume 82 fL (80-100); NEUTROPHILS ABSOLUTE AUTO 7.60 K/mm3 (1.96-9.15); NEUTROPHILS PERCENT AUTO 67 % (41-73); NRBC ABSOLUTE 0.00 K/mm3 (0.00-0.02); NRBC Auto 0.0 /100 WBC (0.0-0.2); Platelet Count 240 K/mm3 (150-400); RDW Coefficient Variation 14.7 % (11.7-14.2); RDW Standard Deviation 44.4 fL (35.1-46.3)
[2024-10-19 04:52] LABS: Albumin, Blood 3.0 g/dL (3.4-5.0); Anion Gap 12 mmol/L (3-11); Blood Urea Nitrogen 66 mg/dL (8-24); CO2, Blood 30 mmol/L (21-32); Calcium, Blood 9.3 mg/dL (8.5-10.1); Chloride, Blood 98 mmol/L (98-108); Creatinine, Blood 6.19 mg/dL (0.60-1.20); Glucose, Blood 135 mg/dL (70-99); Magnesium, Blood 2.5 mg/dL (1.6-2.4); Phosphorus, Blood 5.3 mg/dL (2.5-4.9); Potassium, Blood 3.5 mmol/L (3.5-5.5); Sodium, Blood 136 mmol/L (136-145)
--- NOTE | 2024-10-19 05:30 | NUR ---
SHIFT SUMMARY PATIENT A/O X3 THROUGHOUT THE SHIFT. VOIDING WELL. REPORTING 5/10 PAIN TO R KNEE, STATES THAT IT IS CHRONIC PAIN THAT HE HAS DEALT WITH FOR SEVERAL YEARS. TREATED WITH TYLENOL PER EMAR. VITAL SIGNS REMAINED STABLE THROUGHOUT THE SHIFT. VOIDING WELL. NO ACUTE CHANGES THROUGHOUT THE SHIFT. CALL LIGHT IN REACH, BED IN LOWEST POSITION.
--- NOTE | 2024-10-19 13:40 | NUR ---
ASSUMED CARE OF PT A/O X 3-4 VERY SLEEPY AND HAS NO APPETITE, FELL ASLEEP DURNING BREAKFAST. 0900 TAKEN TO DIALYSIS. 1100 PT RETURNED FROM DIALYSIS MORE ALERT AND RESPONSIVE WITH SOME APPETITE, PT FED SELF, FAMILY AT BEDSIDE. ATTEMPTED TRANSFER TO BATHROOM BUT UNSUCCESSFUL DUE TO RIGHT KNEE PAIN, PT WAS ABLE TO TRANSFER TO BS WITH FWW.
[2024-10-19] MEDS ORDERED: Lidocaine 4% 1 Patch TOP PRN (14:00)
--- NOTE | 2024-10-19 14:02 | NUR ---
Spiritual Care Visit. Pt. is awake in bed. Spouse was at bedside when they both welcomed my visit. Facilitated an update of pts. progress and consideredmatters of diagnosis and prognosis. Pt. verbalized expectation to be discharged home once they can establish regular dialysis chair time. Considered matters of pavan and belief and the pts. local [facility]. Spouse verbalized that there are several churches praying for the Pt. Prayed with the Pt. Pt. verbalized gratitude for the spiritual care visit.
[2024-10-19 16:11] LABS: HEPATITIS B SURFACE ANTIBODY <3.10 IU/L
[2024-10-19 16:43] LABS: HBV CORE ANTIBODIES,TOTAL Negative (Negative)
[2024-10-20] VITALS (17 sets, daily range): BP systolic 98–150; BP diastolic 72–91
--- NOTE | 2024-10-20 04:45 | NUR ---
SHIFT SUMMARY A/O X3 THROUGHOUT THE SHIFT. NO ACUTE CHANGES. VITAL SIGNS REMAINED STABLE. WHILE DOING LINEN CHANGE, THIS RN NOTED THAT THERE WAS BLOOD ON PTS ATTENDS. PT STATES THAT HE HAD BEEN ITCHING HIS INTERGLUTEAL CLEFT, AND IT SPLIT OPEN. PT REPORTS THAT THIS "HAPPENS ALL THE TIME." THIS RN CLEANSED THE AREA, PATTED DRY, AND COVERED WITH MEPILEX DRESSING. SEE SKIN ASSESSMENT. PAIN TO R KNEE TREATED WITH TYLENOL PER EMAR. PT USING CALL LIGHT APPROPRIATELY. BED IN LOWEST POSITION.
[2024-10-20 05:19] LABS: Hematocrit 40.4 % (37.0-53.0); Hemoglobin 13.3 g/dL (13.5-17.5)
[2024-10-20 05:46] LABS: Albumin, Blood 2.8 g/dL (3.4-5.0); Anion Gap 10 mmol/L (3-11); Blood Urea Nitrogen 57 mg/dL (8-24); CO2, Blood 30 mmol/L (21-32); Calcium, Blood 9.3 mg/dL (8.5-10.1); Chloride, Blood 98 mmol/L (98-108); Creatinine, Blood 5.39 mg/dL (0.60-1.20); Glucose, Blood 109 mg/dL (70-99); Magnesium, Blood 2.4 mg/dL (1.6-2.4); Phosphorus, Blood 5.4 mg/dL (2.5-4.9); Potassium, Blood 3.3 mmol/L (3.5-5.5); Sodium, Blood 135 mmol/L (136-145)
[2024-10-20] MEDS ORDERED: Potassium Chloride 10 Meq Tablet SA PO ONE (06:20)
--- NOTE | 2024-10-20 17:41 | NUR ---
PT HAD DIALYSIS TODAY. 1LT REMOVED. PT HAD NO C/O PAIN, SOB OR CHEST PAIN. NO CHANGES IN PT STATUS TODAY
[2024-10-20 20:23] LABS: QUANTIFERON MITOGEN MINUS NIL 9.93 IU/mL; QUANTIFERON NIL 0.07 IU/mL; QUANTIFERON PLUS TB1 MINUS NIL 0.00 IU/mL (<=0.34); QUANTIFERON PLUS TB2 MINUS NIL 0.01 IU/mL (<=0.34)
[2024-10-21 03:48] VITALS: BP 142/88
--- NOTE | 2024-10-21 04:39 | NUR ---
SHIFT SUMMARY A/O X3-4 THROUGHOUT SHIFT. NO ACUTE CHANGES. PT REPORTS LITTLE PAIN IN R KNEE, NO REDNESS, HEAT, OR SWELLING NOTED. TREATED X1 WITH PRN TYLENOL PER EMAR AT BEGINING OF THE SHIFT. VITAL SIGNS REMAINED STABLE, NO REPORT OF CHEST PAIN, CHEST PRESSURE, OR SOB. MEDICATIONS GIVEN PER EMAR. PT UTILIZING CALL LIGHT APPROPRIATELY. BED IN LOWEST POSITION.
[2024-10-21 06:17] LABS: Hematocrit 44.8 % (37.0-53.0); Hemoglobin 14.6 g/dL (13.5-17.5)
[2024-10-21 06:56] LABS: Albumin, Blood 3.0 g/dL (3.4-5.0); Anion Gap 10 mmol/L (3-11); Blood Urea Nitrogen 56 mg/dL (8-24); CO2, Blood 29 mmol/L (21-32); Calcium, Blood 9.4 mg/dL (8.5-10.1); Chloride, Blood 96 mmol/L (98-108); Creatinine, Blood 5.40 mg/dL (0.60-1.20); Glucose, Blood 131 mg/dL (70-99); Phosphorus, Blood 5.5 mg/dL (2.5-4.9); Potassium, Blood 3.6 mmol/L (3.5-5.5); Sodium, Blood 131 mmol/L (136-145)
[2024-10-21 07:45] VITALS: BP 145/96
[2024-10-21 14:43] VITALS: BP 126/85
[2024-10-21] MEDS ORDERED: HYDRA25 PO (16:05)
[2024-10-21] MEDS ORDERED: SEVEC800 PO (16:05)
[2024-10-21] MEDS ORDERED: VISBIOME 112.51 EACH PO (16:05)
--- NOTE | 2024-10-21 18:30 | NUR ---
DISCHARGE NOTE PT EDUCATED ON DISCHARGE PACKET AND INSTRUCTIONS. FAMILY EDUCATED ON FOLLOW UP APPTS. CHAIR TIME ARRANGED AND PT EDUCATED ON DIALYSIS SCHEDULE. PT CANT READ SO FAMILY WENT OVER NEW MEDICATION LIST AND VERBALIZED UNDERSTANDING FOR PATIENT. ESCORTED DOWN VIA WHEELCHAIR BY TYRE FINISHER AND EXAMINER. BELONGINGS GATHERED AND RETURNED. IV REMOVED PRIOR TO DC. NO NEW QUESTIONS OR CONCERS. RIGHT CHEST PERMACATH DRESSING C/D/I.
== END 2024-10-21 17:06 | disposition home or self-care (01) | DRG 871 ==
LOC: ER 15:42 → MEDS 15:43
PROVIDERS: Emergency Medicine; Family Medicine; Internal Medicine Nephrology; Physician Assistant; Student in an Organized Health Care Education/Training Program; ADMIT Student in an Organized Health Care Education/Training Program
PROC: 3E03329 Introduction of Other Anti-infective into Peripheral Vein, Percutaneous Approach (ICD-10-PCS; 2024-10-14)
PROC: 5A1D70Z Performance of Urinary Filtration, Intermittent, Less than 6 Hours Per Day (ICD-10-PCS; principal; 2024-10-18)
PROC: 0JH60XZ Insertion of Tunneled Vascular Access Device into Chest Subcutaneous Tissue and Fascia, Open Approach (ICD-10-PCS; 2024-10-18)
PROC: 02HV33Z Insertion of Infusion Device into Superior Vena Cava, Percutaneous Approach (ICD-10-PCS; 2024-10-18)
PROC: B548ZZA Ultrasonography of Superior Vena Cava, Guidance (ICD-10-PCS; 2024-10-18)
DX: A41.9 Sepsis, unspecified organism (principal); J18.9 Pneumonia, unspecified organism; N18.6 End stage renal disease; N17.9 Acute kidney failure, unspecified; I12.0 Hypertensive chronic kidney disease with stage 5 chronic kidney disease or end stage renal disease; E87.1 Hypo-osmolality and hyponatremia; N13.8 Other obstructive and reflux uropathy; Z66 Do not resuscitate; R65.20 Severe sepsis without septic shock; N40.1 Benign prostatic hyperplasia with lower urinary tract symptoms; K21.9 Gastro-esophageal reflux disease without esophagitis; M10.9 Gout, unspecified; Z99.2 Dependence on renal dialysis; G47.00 Insomnia, unspecified; E11.22 Type 2 diabetes mellitus with diabetic chronic kidney disease; F41.9 Anxiety disorder, unspecified; F32.A Depression, unspecified; I44.0 Atrioventricular block, first degree; D63.1 Anemia in chronic kidney disease; N25.0 Renal osteodystrophy; E83.39 Other disorders of phosphorus metabolism; E11.42 Type 2 diabetes mellitus with diabetic polyneuropathy; E87.5 Hyperkalemia; E87.70 Fluid overload, unspecified; Z79.51 Long term (current) use of inhaled steroids; Z79.84 Long term (current) use of oral hypoglycemic drugs; Z79.899 Other long term (current) drug therapy; Z79.82 Long term (current) use of aspirin; Z87.01 Personal history of pneumonia (recurrent); Z88.5 Allergy status to narcotic agent; Z88.8 Allergy status to other drugs, medicaments and biological substances; Z87.891 Personal history of nicotine dependence; Z98.890 Other specified postprocedural states
CPT/HCPCS: 0202U; 0241U; 0528U; 36415; 71046; 76770; 76937; 80048; 80053; 80069; 81001; 82803; 82947; 83605; 83735; 84100; 84145; 84484; 85014; 85018; 85025; 86480; 86704; 87040; 87070; 87205; 87340; 87449; 93005; 93010; 94640; 94664; 94760; 96365; 96367; 99152; 99285-25; A9270; C1750; C1769; C1894; G0378; J0456; J0696; J1644; J2250; J3010; J3480; J7040; J7050

== ENCOUNTER → 2024-12-30 | Outpatient (CLI) | payer OTHER ==
[~2024-12-30] MED LIST changes: +BUMETANIDE2 M6 PO; +CALCITRIOL0.25 MC4 PO; +CLOP75 PO; +FOLI1 PO; +GLIPIZIDE ER2.5 MG PO; +KETO15TC TOP; +Ketoconazole120 ML TOP; +POTCHL20ER PO; +Potassium Chlo20 ME1 PO; +SEVEC800 PO; +VISBIOME 112.51 EACH PO; +VITAMIN B121000 MCG PO; +VITAMIN D325 MC3 PO
== END ==
LOC: LAB SHORT 07:00 → LAB 07:00
DX: E11.22 Type 2 diabetes mellitus with diabetic chronic kidney disease (principal); N18.6 End stage renal disease; Z99.2 Dependence on renal dialysis
CPT/HCPCS: 83036

== ENCOUNTER 2025-01-05 07:04 | Day surgery (SDC) | payer OTHER ==
[2025-01-05] VITALS (9 sets, daily range): BP systolic 120–180; BP diastolic 74–94
[~2025-01-05] VITALS: Ht 170.2 cm; Wt 95.4 kg
[2025-01-05] MEDS ORDERED: NS 1,000 ML IV ONE ×2 (07:49→08:07)
[2025-01-05] MEDS ORDERED: Heparin Sodium 1000 Units/ML 10ML MDV ONE (07:49)
[2025-01-05] MEDS ORDERED: FentaNYL Citrate 50 MCG/ML 2 ML Injection ONE (08:07)
[2025-01-05] MEDS ORDERED: Midazolam HCl 1MG / ML 2ML Vial ONE (08:07)
[2025-01-05] MEDS ORDERED: Verapamil HCL 2.5 MG/ML 2ML Injection ONE (08:52)
[2025-01-05] MEDS ORDERED: Nitroglycerin 2 MG/20 ML BTL ONE (08:52)
--- NOTE | 2025-01-05 09:33 | NUR ---
PT BACK TO RECOVERY ROOM, SITTING UP IN RECLINER, ALERT AND ORIENTED. TR BAND TO L WRIST WITH 9CC AIR IN BAND.
--- NOTE | 2025-01-05 11:30 | NUR ---
3 cc air released, site started bleeding again. 3 cc air replaced
--- NOTE | 2025-01-05 11:58 | NUR ---
all air released from tr band, no bleeding noted
--- NOTE | 2025-01-05 12:46 | NUR ---
PT DRESSED WITH ASSIST. R RADIAL SITE STABLE WITH NO BLEEDING OR HEMATOMA. TR BAND REMOVED AND SITE CLEANSED. CLOTH DOT PLACED AND ARM BOARD ON. SALINE LOCK REMOVED WITH CATHETER INTACT. DISCHARGE INSTRUCTIONS REVIEWED WITH PT, VERBALIZES UNDERSTANDING OF INSTRUCTIONS. PT TO PRIVATE VEHICLE PER DISCHARGE VOLUNTEER. WILL BE IN CARE OF .
== END 2025-01-05 13:45 | disposition home or self-care (01) ==
LOC: MHTC 07:04
DX: I12.0 Hypertensive chronic kidney disease with stage 5 chronic kidney disease or end stage renal disease (principal); E11.22 Type 2 diabetes mellitus with diabetic chronic kidney disease; N18.6 End stage renal disease; Z87.891 Personal history of nicotine dependence
CPT/HCPCS: 36836; 76937; 99152; 99153; C1725; C1769; C1894; J1644; J2250; J3010; J7030; Q9967

== ENCOUNTER 2025-03-23 05:35 | Emergency (ER) | payer OTHER ==
[~2025-03-23] VITALS: Ht 170.2 cm; Wt 95.2 kg
[2025-03-23 06:42] LABS: BASOPHILS ABSOLUTE AUTO 0.07 K/mm3 (0.00-0.23); BASOPHILS PERCENT AUTO 1 % (0-2); EOSINOPHILS ABSOLUTE AUTO 0.02 K/mm3 (0.00-0.68); EOSINOPHILS PERCENT AUTO 0 % (0-6); Hematocrit 43.8 % (37.0-53.0); Hemoglobin 14.5 g/dL (13.5-17.5); IMMATURE GRAN ABSOLUTE AUTO 0.09 K/mm3 (0.00-0.10); IMMATURE GRAN PERCENT AUTO 1 % (0-1); LYMPHOCYTES ABSOLUTE AUTO 0.92 K/mm3 (0.84-5.20); LYMPHOCYTES PERCENT AUTO 11 % (21-46); MONOCYTES ABSOLUTE AUTO 1.10 K/mm3 (0.16-1.47); MONOCYTES PERCENT AUTO 14 % (4-13); Mean Corpuscular HGB Conc 33.1 g/dL (31.5-36.5); Mean Corpuscular Volume 86 fL (80-100); NEUTROPHILS ABSOLUTE AUTO 5.96 K/mm3 (1.96-9.15); NEUTROPHILS PERCENT AUTO 73 % (41-73); NRBC ABSOLUTE 0.00 K/mm3 (0.00-0.02); NRBC Auto 0.0 /100 WBC (0.0-0.2); Platelet Count 224 K/mm3 (150-400); RDW Coefficient Variation 14.7 % (11.7-14.2); RDW Standard Deviation 46.7 fL (35.1-46.3)
[2025-03-23 06:53] LABS: Alanine Aminotransfer (ALT/SGP 46.0 U/L (12-78); Albumin, Blood 3.8 g/dL (3.4-5.0); Albumin/Globulin Ratio 1.0 (0.8-1.8); Anion Gap 13.0 mmol/L (3-11); Aspartate Aminotrans (AST/SGOT 18.0 U/L (12-37); Bilirubin, Total 0.6 mg/dL (0.1-1.0); Blood Urea Nitrogen 40.0 mg/dL (8-24); CO2, Blood 29.0 mmol/L (21-32); Calcium, Blood 9.3 mg/dL (8.5-10.1); Chloride, Blood 94.0 mmol/L (98-108); Creatinine, Blood 6.1 mg/dL (0.60-1.20); Globulin, Blood 4.0 g/dL (2.2-4.0); Glucose, Blood 120.0 mg/dL (70-99); Potassium, Blood 3.4 mmol/L (3.5-5.5); Sodium, Blood 133.0 mmol/L (136-145); Total Protein, Blood 7.8 g/dL (6.4-8.2)
[2025-03-23 07:56] LABS: Influenza A, PCR NEGATIVE (NEGATIVE); Influenza B, PCR NEGATIVE (NEGATIVE); Resp Syncytial Virus, PCR NEGATIVE (NEGATIVE)
[2025-03-23 08:08] LABS: SARS-Cov-2 (COVID-19) PCR, MMC POSITIVE (NEGATIVE)
[2025-03-23 09:04] VITALS: BP 139/81
== END 2025-03-23 09:04 | disposition home or self-care (01) ==
LOC: ER 05:35
PROVIDERS: Emergency Medicine
DX: U07.1 COVID-19 (principal); R29.6 Repeated falls; R26.89 Other abnormalities of gait and mobility; I12.0 Hypertensive chronic kidney disease with stage 5 chronic kidney disease or end stage renal disease; E11.22 Type 2 diabetes mellitus with diabetic chronic kidney disease; N18.6 End stage renal disease; K21.9 Gastro-esophageal reflux disease without esophagitis; M10.9 Gout, unspecified; N40.0 Benign prostatic hyperplasia without lower urinary tract symptoms; Z99.2 Dependence on renal dialysis; Z87.891 Personal history of nicotine dependence; Z88.5 Allergy status to narcotic agent; Z88.8 Allergy status to other drugs, medicaments and biological substances; Z79.84 Long term (current) use of oral hypoglycemic drugs; Z79.02 Long term (current) use of antithrombotics/antiplatelets; Z79.899 Other long term (current) drug therapy
CPT/HCPCS: 70450; 71045; 80053; 80320; 85025; 87637; 93005; 93010; 99285-25